=== PATIENT | male | born 1980 | race Two or more races ===

== ENCOUNTER 2018-04-22 06:35 | Day surgery (SDC) | payer OTHER ==
[~2018-04-22 06:35] MED LIST: INTESTINEX1 CA1 PO; OXYC1TAB9 PO; PROTONIX40 MG PO
== END 2018-04-22 09:35 | disposition home or self-care (01) ==
LOC: AMB-ENDOS 06:35
DX: Z85.038 Personal history of other malignant neoplasm of large intestine (principal)